=== PATIENT | female | born 1960 | race Caucasian/White ===

== ENCOUNTER → 2016-05-09 06:57 | Day surgery (SDC) | payer OTHER ==
--- NOTE | 2016-04-20 10:26 | HP ---
ADMITTING HISTORY AND PHYSICAL: DATE OF ADMISSION: 05/09/16 ADMITTING DIAGNOSIS: Left renal calculus. PLANNED PROCEDURE: Left stent insertion and shock wave lithotripsy of left renal calculus. SURGEON: Dr. Hale. ADMITTING HISTORY OF PRESENT ILLNESS: Michelle Fairchild is a 55-year-old lady who had presented with large bilateral renal calculi. She had undergone multiple procedures earlier for the right renal calculi with fragmentation, but she still has a lot of residual fragments. On the left side, she has a fairly large calculus, which has not been treated and she is now being brought in for left stent insertion and lithotripsy. PAST MEDICAL HISTORY: Significant for: 1. Bilateral renal calculi. 2. Morbid obesity. 3. Diabetes mellitus. 4. Hypertension. 5. High cholesterol. MEDICATIONS: On admission: 1. Metformin 500 mg a day. 2. Lisinopril 5 mg a day. 3. Bydureon 2 mg daily. 4. Simvastatin 5 mg a day. 5. Hydrochlorothiazide 12.5 mg a day. 6. Aspirin, which she is going to hold a week prior to surgery. ALLERGIES: No known drug allergies. SOCIAL HISTORY: Smoking history: She is a long-time smoker, approximately 35- to 40-pack years. PHYSICAL EXAMINATION GENERAL: Reveals a pleasant middle-aged overweight lady. VITAL SIGNS: Blood pressure is 136/88, pulse 86 per minute, oxygen saturation 97% on room air, temperature 97. LUNGS: Clear bilaterally. CARDIOVASCULAR: Regular rate and rhythm. S1, S2. ABDOMEN: Soft, obese with mild bilateral flank tenderness. IMPRESSION: A 55-year-old lady with a left renal calculus. PLAN: Planned procedure is left stent insertion and shock wave lithotripsy of left renal calculus. I have discussed the procedure in detail with Ms. Fairchild including possible risks of bleeding, infection, incomplete fragmentation, and she understands and wishes to proceed as planned. CC: Dr. Britt Bautista; Dr. Hale* [id number]/[facility] #: [id number] [facility]
[~2016-05-09 06:57] MED LIST: Buffered Lidocaine 1% SYR 3ML* 3 ML/SYR SYRINGE INTRADERM ONE; Dexamethasone IV* 4 MG/ML 1 ML (4 MG) ONE; Famotidine IV* 10 MG/ML 2 ML (20 mg) IV ONE; Famotidine IV* 10 MG/ML 2 ML (20 mg) ONE; HYDROmorphone INJ* 1 MG/ML CARPUJECT SYRINGE IV PRN; Iohexol 180 (CONTRAST) 10 ML SDV IV ONE; KETAMINE HCL* 50 MG/ML 10 ML VIAL ONE; Ketorolac INJ* 30 MG/ML 1 ML VIAL ONE; Labetalol IV* 5 MG/ML 20 ML VIAL ONE; Lidocaine 2% PF * 5 ML VIAL ONE; Metoclopramide TAB* 10 MG ONE; Metoclopramide TAB* 10 MG PO ONE; Midazolam* 1 MG/ML 5 ML VIAL (5 MG) ONE; Ondansetron INJ* 2 MG/ML VIAL IV PRN; Ondansetron INJ* 2 MG/ML VIAL ONE; Propofol* 10 MG/ML 20 ML BTL IV PUSH ONE; cefTRIAXone(*) 2 GM ADDV.VIAL IVPB ONE; fentaNYL* 50 MCG/ML 2 ML VIAL (100 MCG VIAL) IV PRN; fentaNYL* 50 MCG/ML 2 ML VIAL (100 MCG VIAL) ONE; oxyCODONE/Acetamin 5/325 MG* TAB PO PRN
--- NOTE | 2016-05-09 08:15 | RAD ---
INDICATION: Bilateral nephrolithiasis COMPARISON: March 14, 2016 TECHNIQUE: A single view of the abdomen is submitted. FINDINGS: Bones: There are no acute bony findings. Soft tissues: The soft tissues appear normal. The psoas margins are sharp. Bowel gas pattern: Normal Calcifications: There is bilateral nephrolithiasis. The right calculus is fragmented. The appearance is unchanged Other: None IMPRESSION: BILATERAL NEPHROLITHIASIS
[2016-05-09 12:18] VITALS: BP 129/76
--- NOTE | 2016-05-09 15:11 | RAD ---
INDICATION: Postoperative COMPARISON: May 09, 2016 TECHNIQUE: A single view of the abdomen is taken at 1341 hours submitted. FINDINGS: Bones: There are no acute bony findings. Soft tissues: The soft tissues appear normal. The psoas margins are sharp. Bowel gas pattern: Normal Calcifications: There is interval fragmentation of the left renal calculus and there is interval placement of a left ureteral stent. Other: None IMPRESSION: INTERVAL LEFT-SIDED LITHOTRIPSY WITH CALCULUS FRAGMENTATION. STENT PLACEMENT.
--- NOTE | 2016-05-10 02:15 | OP ---
DATE OF OPERATION: 05/09/16 - [facility] DATE OF : 58 SURGEON: Dr. Hale. ANESTHESIOLOGIST: Dr. Dillon. ANESTHESIA: General. PRE-OP DIAGNOSES: 1. Left renal calculus. 2. Left hydronephrosis. POST-OP DIAGNOSES: 1. Left renal calculus. 2. Left hydronephrosis. OPERATIVE PROCEDURE: 1. Cystoscopy, left retrograde pyelogram, left stent insertion. 2. Shockwave lithotripsy of left renal calculus. COMPLICATIONS: None. OPERATIVE FINDINGS: Large calculus, left ureteropelvic junction with left hydronephrosis. STENT USED: 8.5-Canadian 28-cm silicone stent, left ureter. POSTOPERATIVE CONDITION: Stable. INDICATIONS: Michelle Fairchild is a 55-year-old lady with a history of recurrent bilateral renal calculi. She had previously undergone treatment of right-sided calculi and is now being brought in for treatment of a large left ureteropelvic junction calculus. I have discussed the procedure in detail including possible risks of bleeding, infection, incomplete fragmentation, and possible injury to the kidney with her and she wishes to proceed as planned. DESCRIPTION OF PROCEDURE: After induction of general anesthesia, the patient was placed on the lithotripsy table in dorsal lithotomy position. Sequential compression devices were in place and functioning. Initial cystoscopy revealed a normal-appearing bladder. Left retrograde pyelogram revealed a large calculus at the left ureteropelvic junction with left hydronephrosis. An 8.5- Canadian 28-cm silicone stent was placed under fluoroscopic monitoring with good proximal and distal positioning obtained. Next, the patient was placed on the lithotripsy table in supine position and the calculus was identified using fluoroscopy. Shockwave lithotripsy was commenced at a rate of 90 shocks per minute. After the initial 300 shocks, lithotripsy was paused in an effort to minimize any potential trauma to the kidney and then resumed a few minutes later. Periodic imaging revealed good localization and fragmentation and a total of 2400 shocks were administered. I have explained to the patient that because of the large size of the calculus, she may require multiple procedures to render her stone free and the plan is to obtain an x-ray after this to see what additional procedures if any are needed. CC: Dr. Britt Bautista; Dr. Rob Hale* [id number]/[facility] #: [id number] [place]
== END | disposition home or self-care (01) ==
LOC: OR 06:57
PROVIDERS: ATTEND Urology
DX: N13.2 Hydronephrosis with renal and ureteral calculous obstruction (principal); Z79.82 Long term (current) use of aspirin; E11.9 Type 2 diabetes mellitus without complications; Z79.84 Long term (current) use of oral hypoglycemic drugs; I10 Essential (primary) hypertension; F17.210 Nicotine dependence, cigarettes, uncomplicated; E66.01 Morbid (severe) obesity due to excess calories
CPT/HCPCS: 74000; A9270-GY; C1876; J0696; J1100; J1885; J2250; J2405; J2704; J3010

== ENCOUNTER 2016-07-22 14:20 | Day surgery (SDC) | payer OTHER ==
--- NOTE | 2016-07-21 22:06 | HP ---
STAT ADMITTING HISTORY AND PHYSICAL: DATE OF ADMISSION: 07/22/16 AGE: 55 years, female. ADMITTING DIAGNOSES: 1. Left hydronephrosis. 2. Left ureteral calculus. 3. Bilateral renal calculi. PLANNED PROCEDURES: Left retrograde, left ureteroscopy, possible laser and stent insertion, and possible right stent insertion. SURGEON: Dr. Hale. HISTORY OF PRESENT ILLNESS: Michelle Fairchild is a 55-year-old lady with a history of recurrent multiple large bilateral renal and ureteral calculi. She had undergone lithotripsy followed by stent removal a couple of months ago. She was recently evaluated and an ultrasound was noted to have moderate left hydronephrosis. On x- ray, she was noted to have what appears to be a 7 to 8 mm calculus in the proximal left ureter. A followup x-ray was done, which revealed a persistent calculus in the same location unchanged and she is complaining of increasing left flank pain. In addition, she has bilateral renal calculi and also a possible calculus in the area of the right renal pelvis. PAST MEDICAL HISTORY: Significant for: 1. Morbid obesity. 2. Diabetes mellitus. 3. Renal calculi. 4. High cholesterol. 5. Hypertension. MEDICATIONS: 1. Bydureon 2 mg daily. 2. Lisinopril 5 mg daily. 3. Hydrochlorothiazide 12.5 mg daily. 4. Simvastatin 5 mg a day. 5. Metformin 500 mg daily. ALLERGIES: No known drug allergies. PHYSICAL EXAMINATION GENERAL: An obese, middle-aged lady. VITAL SIGNS: Blood pressure is 142/88, pulse 94 per minute, oxygen saturation 96% on room air, temperature 97.3. LUNGS: Clear bilaterally. CARDIOVASCULAR EXAM: Regular rate and rhythm. S1, S2. ABDOMEN: Soft, obese with bilateral flank tenderness, left more than right. IMPRESSION: A 55-year-old diabetic with multiple large bilateral calculi and an obstructing calculus in the left proximal ureter. Plan is left retrograde ureteroscopy, possible laser and stent insertion, possible right stent insertion (possibly to be followed in the near future by shockwave lithotripsy). CC: Dr. Britt Bautista; Dr. Hakeem Connor; Dr. Hale* [id number]/[facility] #: [id number] [facility]
[~2016-07-22 14:20] MED LIST changes: -Buffered Lidocaine 1% SYR 3ML* 3 ML/SYR SYRINGE INTRADERM ONE; -Dexamethasone IV* 4 MG/ML 1 ML (4 MG) ONE; -HYDROmorphone INJ* 1 MG/ML CARPUJECT SYRINGE IV PRN; -Iohexol 180 (CONTRAST) 10 ML SDV IV ONE; -KETAMINE HCL* 50 MG/ML 10 ML VIAL ONE; -Ketorolac INJ* 30 MG/ML 1 ML VIAL ONE; -Labetalol IV* 5 MG/ML 20 ML VIAL ONE; -Lidocaine 2% PF * 5 ML VIAL ONE; -Midazolam* 1 MG/ML 5 ML VIAL (5 MG) ONE; -Ondansetron INJ* 2 MG/ML VIAL IV PRN; -Ondansetron INJ* 2 MG/ML VIAL ONE; -Propofol* 10 MG/ML 20 ML BTL IV PUSH ONE; -fentaNYL* 50 MCG/ML 2 ML VIAL (100 MCG VIAL) IV PRN; -fentaNYL* 50 MCG/ML 2 ML VIAL (100 MCG VIAL) ONE; -oxyCODONE/Acetamin 5/325 MG* TAB PO PRN
[2016-07-22] MEDS ORDERED: Iohexol 180 (CONTRAST) 10 ML SDV IV ONE (14:48)
[2016-07-22] MEDS ORDERED: Lidocaine 2% PF * 5 ML VIAL ONE (15:03)
[2016-07-22] MEDS ORDERED: KETAMINE HCL* 50 MG/ML 10 ML VIAL ONE (15:03)
[2016-07-22] MEDS ORDERED: Ondansetron INJ* 2 MG/ML VIAL ONE (15:03)
[2016-07-22] MEDS ORDERED: Midazolam* 1 MG/ML 5 ML VIAL (5 MG) ONE (15:03)
[2016-07-22] MEDS ORDERED: Ketorolac INJ* 30 MG/ML 1 ML VIAL ONE (15:03)
[2016-07-22] MEDS ORDERED: Dexamethasone IV* 4 MG/ML 1 ML (4 MG) ONE (15:03)
[2016-07-22] MEDS ORDERED: fentaNYL* 50 MCG/ML 2 ML VIAL (100 MCG VIAL) ONE ×2 (15:03→16:38)
[2016-07-22] MEDS ORDERED: Propofol* 10 MG/ML 20 ML BTL IV PUSH ONE (15:03)
[2016-07-22] MEDS ORDERED: Insulin REGULAR(*) 1 UNITS UNIT ONE (15:11)
[2016-07-22] MEDS ORDERED: Phenylephrine IV* 40 MCG/ML 10 ML SYRINGE ONE (16:19)
[2016-07-22] MEDS ORDERED: fentaNYL* 50 MCG/ML 2 ML VIAL (100 MCG VIAL) IV PRN (16:58)
[2016-07-22] MEDS ORDERED: Ondansetron INJ* 2 MG/ML VIAL IV PRN (16:58)
[2016-07-22] MEDS ORDERED: oxyCODONE/Acetamin 5/325 MG* TAB PO PRN (16:58)
[2016-07-22] MEDS ORDERED: Labetalol IV* 5 MG/ML 20 ML VIAL ONE (17:05)
[2016-07-22 18:51] VITALS: BP 142/75
--- NOTE | 2016-07-22 20:08 | RAD ---
CPT II Codes: 6045F INDICATION: Bilateral renal calculi TECHNIQUE: Intraoperative fluoroscopy was provided during retrograde nephroureterostomy grams with stent placement. FINDINGS: 8 spot films depict bilateral retrograde nephroureterostomy grams demonstrating mild bilateral hydronephrosis. Final images depict anatomically aligned bilateral ureteral stents.. Fluoroscopy time: 27 seconds IMPRESSION: As above.
--- NOTE | 2016-07-25 13:47 | OP ---
OPERATIVE SUMMARY: DATE OF OPERATION: 07/22/16 - [facility] DATE OF : 58 SURGEON: Dr. Hale. ANESTHESIOLOGIST: Dr. Dillon. ANESTHESIA: General. PRE-OP DIAGNOSES: 1. Left hydronephrosis. 2. Calculus, left proximal ureter. 3. Bilateral renal calculi. POST-OP DIAGNOSES: 1. Left hydronephrosis. 2. Calculus, left proximal ureter. 3. Bilateral renal calculi. OPERATIVE PROCEDURE: 1. Cystoscopy, left retrograde pyelogram, left ureteroscopy, laser lithotripsy of left ureteral calculus, and left stent insertion. 2. Right retrograde and right stent insertion. COMPLICATIONS: None. STENT USED: A 6-Botswanan 28-cm silicone stent, left ureter and 7-Botswanan 28-cm silicone stent, right ureter. INDICATIONS: Michelle Fairchild is a 55-year-old lady with a history of recurrent bilateral renal and ureteral calculi. POSTOPERATIVE CONDITION: Stable. DESCRIPTION OF PROCEDURE: After induction of general anesthesia, the patient was placed in dorsal lithotomy position. Sequential compression devices were in place and functioning. Initial cystoscopy revealed a normal-appearing bladder. A left retrograde pyelogram revealed left hydronephrosis. A fairly large obstructing calculus was noted on fluoroscopy in the vicinity of the proximal left ureter. Using a 6-Botswanan semi-rigid ureteroscope, this was advanced under direct vision into the proximal left ureter and the calculus was visualized, it was noted to be impacted with significant surrounding inflammatory response. Using a 550 micron holmium laser, this was partially fragmented. Because of the edema and inflammation around the calculus, I did not attempt to completely fragment the calculus to try and avoid any injury to the ureter and to reduce the risk of stricture. Once enough of the stone had been fragmented, a 6-Botswanan 28-cm silicone stent was introduced and positioned under fluoroscopy with good proximal and distal positioning obtained. Next, attention was directed to the right side. Here also to me, it looked like there was a calculus in the area of the right renal pelvis, on retrograde, with mild fullness of the collecting system. A 7-Botswanan 28-cm silicone stent was introduced in an effort to avoid any obstruction in the near future by this calculus, which was in the renal pelvis. The patient will need additional procedures in the form followup laser lithotripsy for the left ureteral calculus and shockwave lithotripsy probably for the bilateral renal calculi and this had been previously discussed with her. Patient tolerated the procedure satisfactorily and was transferred back to the recovery area in stable condition. CC: Dr. Britt Bautista; Dr. Rob Hale* [id number]/[facility] #: [id number] MTDD
== END 2016-07-22 19:09 | disposition home or self-care (01) ==
LOC: OR 14:20
PROVIDERS: ATTEND Urology
DX: N13.2 Hydronephrosis with renal and ureteral calculous obstruction (principal); E11.9 Type 2 diabetes mellitus without complications; Z79.84 Long term (current) use of oral hypoglycemic drugs; I10 Essential (primary) hypertension; E78.00 Pure hypercholesterolemia, unspecified; E66.01 Morbid (severe) obesity due to excess calories; F17.210 Nicotine dependence, cigarettes, uncomplicated
CPT/HCPCS: 74420; A9270-GY; C1876; J0696; J1100; J1580; J1885; J2250; J2405; J2704; J3010

== ENCOUNTER 2016-08-15 07:34 | Day surgery (SDC) | payer OTHER ==
--- NOTE | 2016-08-10 10:11 | HP ---
CC: Hakeem Connor MD; Britt Bautista MD * ADMITTING HISTORY AND PHYSICAL: DATE OF ADMISSION: 08/15/16 - [facility] AGE/SEX: 55 years, female. ADMITTING DIAGNOSES: 1. Bilateral renal calculi. 2. Left ureteral calculus. PLANNED PROCEDURE: 1. Shock wave lithotripsy of left ureteral calculus, possible left ureteroscopy and laser. 2. Shock wave lithotripsy of right renal calculi. SURGEON: Rob Hale MD HISTORY OF PRESENT ILLNESS: Michelle Fairchild is a 55-year-old lady with morbid obesity and bilateral large renal and ureteral calculi, who has required several procedures over the course of the last year. These have included shock wave lithotripsy and ureteroscopy with laser with the most recent one being on July 22 with left ureteroscopy, laser lithotripsy for a calculus in the left proximal ureter. She is now being brought in for repeat lithotripsy of the right renal calculi and either possible lithotripsy or ureteroscopy with laser of the left renal calculi depending on the preoperative x-ray assessment. PAST MEDICAL HISTORY: Significant for: 1. Diabetes mellitus. 2. Morbid obesity. 3. Large bilateral renal calculi. 4. Hypertension. 5. High cholesterol. MEDICATIONS ON ADMISSION: 1. Lisinopril 5 mg daily. 2. Hydrochlorothiazide 12.5 mg daily. 3. Bydureon 2 mg daily. 4. Simvastatin 5 mg daily. 5. Metformin 500 mg daily. ALLERGIES: No known drug allergies. REVIEW OF SYSTEMS: She denies any chest pain or shortness of breath. PHYSICAL EXAMINATION GENERAL: Reveals an overweight middle-aged lady. VITAL SIGNS: Blood pressure is 134/90, pulse 87 per minute, regular, oxygen saturation 96% on room air, temperature 97.4. CARDIOVASCULAR EXAM: Regular rate and rhythm. S1, S2. LUNGS: Lungs are clear bilaterally. ABDOMEN: Soft with mild bilateral flank tenderness, left greater than right. IMPRESSION: A 55-year-old lady with large bilateral renal and left ureteral calculi. PLANNED PROCEDURE: Shock wave lithotripsy of right renal calculi and either shock wave lithotripsy or left ureteroscopy and laser of left ureteral calculus depending on preoperative x-ray assessment. [id number]/[facility] #: [id number] [facility]
[~2016-08-15 07:34] MED LIST changes: +Buffered Lidocaine 0.9% SYRIN* 5 ML/SYR SYRINGE INTRADERM ONE; -Famotidine IV* 10 MG/ML 2 ML (20 mg) IV ONE; -Famotidine IV* 10 MG/ML 2 ML (20 mg) ONE; -Metoclopramide TAB* 10 MG ONE; -Metoclopramide TAB* 10 MG PO ONE; +Sodium Citrate/Citric Acid* 15 ML UDC PO ONE; -cefTRIAXone(*) 2 GM ADDV.VIAL IVPB ONE
[2016-08-15] MEDS ORDERED: Sodium Citrate/Citric Acid* 15 ML UDC ONE (07:40)
[2016-08-15] MEDS ORDERED: cefTRIAXone(*) 2 GM ADDV.VIAL IVPB ONE (07:40)
[2016-08-15] MEDS ORDERED: Iohexol 180 (CONTRAST) 10 ML SDV IV ONE (08:40)
--- NOTE | 2016-08-15 08:42 | RAD ---
Indication: Shock wave lithotripsy. Flat plate of the abdomen demonstrates bilateral ureteral stents in place. Multiple calcifications are noted in both kidneys. When compared to July 29, 2016 calcification burden appears similar. IMPRESSION: Bilateral ureteral stents are in place. Bilateral renal calcifications are noted.
[2016-08-15] MEDS ORDERED: Propofol* 10 MG/ML 20 ML BTL IV PUSH ONE (09:36)
[2016-08-15] MEDS ORDERED: Lidocaine 2% PF * 5 ML VIAL ONE (09:36)
[2016-08-15] MEDS ORDERED: fentaNYL* 50 MCG/ML 2 ML VIAL (100 MCG VIAL) ONE (09:40)
[2016-08-15] MEDS ORDERED: Phenylephrine IV* 40 MCG/ML 10 ML SYRINGE ONE (10:32)
[2016-08-15] MEDS ORDERED: fentaNYL* 50 MCG/ML 2 ML VIAL (100 MCG VIAL) IV PRN (10:44)
[2016-08-15] MEDS ORDERED: Ondansetron INJ* 2 MG/ML VIAL IV PRN (10:44)
[2016-08-15 12:16] VITALS: BP 153/82
--- NOTE | 2016-08-15 14:54 | RAD ---
INDICATION: Bilateral nephrolithiasis. Status post ESWL COMPARISON: August 15, 2016 TECHNIQUE: A single view of the abdomen is submitted. FINDINGS: Bones: There are no acute bony findings. Soft tissues: The soft tissues appear normal. The psoas margins are sharp. Bowel gas pattern: Normal Calcifications: There is bilateral nephrolithiasis. There is apparent increased fragmentation of these calculi bilaterally. Other: There are bilateral ureteral stents, unchanged IMPRESSION: BILATERAL NEPHROLITHIASIS WITH INTERVAL FRAGMENTATION OF THE CALCULI.
--- NOTE | 2016-08-15 23:24 | OP ---
CC: Britt Bautista MD * DATE OF OPERATION: 08/15/16 - [facility] DATE OF : 58 - AGE/SEX: 55 years/female. SURGEON: Rob Hale MD ANESTHESIOLOGIST: Dr. Kan. ANESTHESIA: General. PRE-OP DIAGNOSES: 1. Left ureteral calculus. 2. Multiple right renal calculi. POST-OP DIAGNOSES: 1. Left ureter calculus. 2. Multiple right renal calculi. OPERATIVE PROCEDURE: 1. Shockwave lithotripsy of left ureteral calculus. 2. Shockwave lithotripsy of multiple renal calculi. COMPLICATIONS: None. POSTOPERATIVE CONDITION: Stable. INDICATIONS: Michelle Fairchild is a 55-year-old lady who had presented with multiple bilateral renal and ureteral calculi. She has undergone several procedures and still has multiple stone fragments in the right kidney and left ureter. She has bilateral stents in place. DESCRIPTION OF PROCEDURE: After induction of general anesthesia, the patient was placed on the lithotripsy table in supine position. Attention was first directed to the left side. The dominant calculus was in the proximal left ureter adjacent to the stent. This was localized using fluoroscopy and shockwave lithotripsy was commenced at a rate of 60 shocks per minute. Periodic imaging revealed good localization and fragmentation and a total of 1800 shocks were delivered. Next, attention was directed to the right side, there was a cluster of stones in the right renal pelvis and these were targeted with shockwaves at a rate of 60 shocks per minute. After the initial 300 shocks, there was a pause in lithotripsy for several minutes in an effort to minimize any potential trauma to the kidney. Lithotripsy was then resumed, and a total of 2200 shocks were administered. The patient tolerated the procedure satisfactorily and was transferred back to the recovery area in stable condition. [id number]/[facility] #: [id number] MTDD
== END 2016-08-15 13:13 | disposition home or self-care (01) ==
LOC: OR 07:34
PROVIDERS: ATTEND Urology
DX: N20.2 Calculus of kidney with calculus of ureter (principal); E11.9 Type 2 diabetes mellitus without complications; I10 Essential (primary) hypertension; E78.00 Pure hypercholesterolemia, unspecified; E66.01 Morbid (severe) obesity due to excess calories
CPT/HCPCS: 74000; A9270-GY; J0696; J1580; J2704; J3010

== ENCOUNTER 2017-03-13 10:45 | Day surgery (SDC) | payer OTHER ==
--- NOTE | 2017-03-01 08:23 | HP ---
CC: Dr. Bautista; Dr. Hale ADMITTING HISTORY AND PHYSICAL: DATE OF ADMISSION: 03/13/17 ADMITTING DIAGNOSIS: Right renal calculi. PLANNED PROCEDURE: Right stent insertion and shockwave lithotripsy of right renal calculi. SURGEON: Rob Hale MD HISTORY OF PRESENT ILLNESS: Michelle Fairchild is a 56-year-old lady with history of recurrent bilateral renal calculi. She had previously undergone several procedures over the last year and a half and a r ecent followup ultrasound and x-ray revealed residual or recurrent calculi in the right kidney. She was given options of referral for percutaneous nephrolithotripsy or repeat shockwave lithotripsy or r epeat ureteroscopy with laser and is opting for and is now being brought in for repeat shockwave lith otripsy and right stent insertion. PAST MEDICAL HISTORY: 1. Morbid obesity. 2. Recurrent bilateral renal calculi. 3. Diabetes mellitus. 4. Hypertension. 5. High cholesterol. MEDICATIONS ON ADMISSION: 1. Hydrochlorothiazide 12.5 mg a day. 2. Simvastatin 5 mg a day. 3. Lisinopril 5 mg a day. 4. Bydureon 2 mg a day. 5. Metformin 500 mg daily. She also recently completed a course of Cipro for one week. ALLERGIES: No known drug allergies. PHYSICAL EXAMINATION GENERAL: Reveals a pleasant, overweight middle-aged lady. VITAL SIGNS: Blood pressure is 132/86, pulse 110 per minute and regular, temperature 97.0, oxygen sa turation 98% on room air. LUNGS: Clear bilaterally. CARDIOVASCULAR EXAM: Regular rate and rhythm. S1, S2. ABDOMEN: Soft, obese with right flank tenderness. IMPRESSION: A 56-year-old diabetic with history of recurrent renal calculi. Planned procedure is ri t stent insertion and shockwave lithotripsy of right renal calculi. I have discussed the procedure in detail including possible risks of bleeding, infection, incomplete fragmentation, possible injury to the kidney, and obstructing fragments. She understands and wishes to proceed as planned. [id number]/[facility] #: [id number]
[~2017-03-13 10:45] MED LIST changes: +Famotidine IV* 10 MG/ML 2 ML (20 mg) IV ONE; -Sodium Citrate/Citric Acid* 15 ML UDC PO ONE
[2017-03-13] MEDS ORDERED: Midazolam* 1 MG/ML 2 ML VIAL (2 MG) ONE (11:19)
[2017-03-13] MEDS ORDERED: fentaNYL* 50 MCG/ML 2 ML VIAL (100 MCG VIAL) ONE (11:19)
[2017-03-13] MEDS ORDERED: Buffered Lidocaine 0.9% SYRIN* 5 ML/SYR SYRINGE ONE (11:25)
[2017-03-13] MEDS ORDERED: Famotidine IV* 10 MG/ML 2 ML (20 mg) ONE (11:25)
[2017-03-13] MEDS ORDERED: cefTRIAXone(*) 1 GM ADVAN/BAG ONE (11:26)
[2017-03-13] MEDS ORDERED: Insulin REGULAR(*) 1 UNITS UNIT ONE (11:43)
[2017-03-13] MEDS ORDERED: Iohexol 180 (CONTRAST) 10 ML SDV IV ONE (11:55)
[2017-03-13] MEDS ORDERED: Insulin REGULAR(*) 1 UNITS UNIT SUBCUT ONE (11:55)
[2017-03-13] MEDS ORDERED: Naloxone* 0.4 MG/ML 1 ML VIAL IV PRN (11:56)
[2017-03-13] MEDS ORDERED: Acetaminophen TAB* 325 MG PO PRN (11:57)
[2017-03-13] MEDS ORDERED: oxyCODONE TAB* 5 MG TAB PO PRN (11:57)
[2017-03-13] MEDS ORDERED: Dexamethasone IV* 4 MG/ML 1 ML (4 MG) ONE (12:22)
[2017-03-13] MEDS ORDERED: Ketorolac INJ* 30 MG/ML 1 ML VIAL ONE (12:22)
[2017-03-13] MEDS ORDERED: Propofol* 10 MG/ML 20 ML BTL IV PUSH ONE (12:22)
[2017-03-13] MEDS ORDERED: Ondansetron INJ* 2 MG/ML VIAL ONE (12:22)
[2017-03-13] MEDS ORDERED: DiMENhydriNATE IV* 50 MG/ML VIAL ONE (12:22)
[2017-03-13] MEDS ORDERED: Gentamicin ADULT (*) 40 MG/ML VIAL ONE (12:46)
--- NOTE | 2017-03-13 12:56 | RAD ---
HISTORY: Shock wave lithotripsy COMPARISONS: February 10, 2017 VIEWS: Frontal views of the abdomen. FINDINGS: BOWEL: There is a nonspecific bowel gas pattern, with nondilated small bowel gas noted. CALCULI: Again noted are multiple calculi overlying the lower pole of the right renal parenchymal shadow BONES AND SOFT TISSUES: Degenerative changes noted of the spine. OTHER FINDINGS: The lung bases are clear. There is no subphrenic gas. IMPRESSION: STABLE RIGHT NEPHROLITHIASIS
[2017-03-13 14:43] VITALS: BP 148/75
--- NOTE | 2017-03-14 11:43 | OP ---
DATE OF OPERATION: 03/13/17 - [facility] DATE OF : 58 SURGEON: Rob Hale MD ANESTHESIOLOGIST: Dr. Kenny. ANESTHESIA: General. PRE-OP DIAGNOSIS: Multiple right renal calculi. POST-OP DIAGNOSIS: Multiple right renal calculi. OPERATIVE PROCEDURE: 1. Cystoscopy, right retrograde pyelogram, right ureteral stent insertion. 2. Shockwave lithotripsy of right renal calculi. COMPLICATIONS: None. POSTOPERATIVE CONDITION: Stable. STENT USED: 7-Wolof stent right ureter. INDICATIONS: Michelle Fairchild is a 56-year-old lady with recurrent bilateral renal calculi. She was recently evaluated and noted to have multiple calculi in the right kidney and has now been brought in for treatment for the same. DESCRIPTION OF PROCEDURE: After induction of general anesthesia, the patient was placed in dorsal lithotomy position. Sequential compression devices were in place and functioning. Initial cystoscopy revealed urethral stenosis with a retracted meatus. The bladder was examined, but some cloudy residual urine noted. Right retrograded pyelogram was performed, which was unremarkable except for the filling defects consistent with the known location of the calculi. A 7-Wolof stent was introduced and positioned under fluoroscopy with good proximal and distal positioning obtained. Next, the patient was placed on the lithotripsy table in supine position. There were two clusters of calculi in mid to lower pole area of the right kidney , which were targeted under fluoroscopic monitoring with shockwave lithotripsy at a rate of 90 shocks per minute. After the initial 300 shocks, there was a pause in lithotripsy for several minutes in an effort to minimize any potential trauma to the kidney. A total of 2400 shocks were distributed between the 2 clusters of calculi and the patient tolerated the procedure satisfactorily and was transferred back to the recovery area in stable condition. [id number]/[facility] #: [id number] [facility]
== END 2017-03-13 15:05 | disposition home or self-care (01) ==
LOC: OR 10:45
PROVIDERS: ATTEND Urology
DX: N20.0 Calculus of kidney (principal); E66.01 Morbid (severe) obesity due to excess calories; E11.9 Type 2 diabetes mellitus without complications; I10 Essential (primary) hypertension; E78.00 Pure hypercholesterolemia, unspecified
CPT/HCPCS: 74018; C1876; J0696; J1100; J1240; J1580; J1885; J2250; J2405; J2704; J3010

== ENCOUNTER → 2018-06-22 06:56 | Day surgery (SDC) | payer OTHER ==
--- NOTE | 2018-06-20 07:35 | HP ---
CC: Dr. Britt Bautista * ADMITTING HISTORY AND PHYSICAL: DATE OF ADMISSION: 06/22/18 ADMITTING DIAGNOSES: 1. Right hydronephrosis. 2. Calculus, right ureter. PLANNED PROCEDURE: Right ureteroscopy, possible laser, and stent insertion. SURGEON: Dr. Hale. HISTORY OF PRESENT ILLNESS: Michelle Fairchild is a 57-year-old diabetic with a history of recurrent renal calculi. She had been recently evaluated and noted to have right hydronephrosis. A CT scan was obtained, which revealed moderate- to-severe right hydronephrosis with an 8-mm calculus in the distal right ureter. PAST MEDICAL HISTORY: Significant for: 1. Recurrent renal calculi. 2. Diabetes mellitus, type 2. 3. Hypertension. 4. High cholesterol. 5. Peripheral neuropathy. MEDICATIONS: On admission: 1. Metformin 1000 mg twice a day. 2. Lisinopril 5 mg a day. 3. Simvastatin 5 mg a day. 4. Aspirin 81 mg a day. 5. Hydrochlorothiazide 12.5 mg a day. 6. Jardiance 10 mg a day. 7. Gabapentin 100 mg 3 times a day. 8. Glipizide 1 tablet daily. ALLERGIES: No known drug allergies. FAMILY HISTORY: Negative for stones. SOCIAL HISTORY: Smoking history: She is a chronic smoker with a [id number] smoking history. REVIEW OF SYSTEMS: She denies any chest pain or shortness of breath. PHYSICAL EXAMINATION GENERAL: Reveals a pleasant, overweight, middle-aged lady. VITAL SIGNS: Blood pressure is 134/70, pulse 90 per minute, temperature 97.5, oxygen saturation 94% on room air. LUNGS: Clear bilaterally. CARDIOVASCULAR: Regular rate and rhythm. S1, S2. ABDOMEN: Soft with right flank tenderness. IMPRESSION: A 57-year-old diabetic with 8-mm calculus in the right distal ureter with [id number] right hydronephrosis. PLAN: I discussed the procedure in detail with Ms. Fairchild including possible risks of bleeding, infection, incomplete fragmentation, possible injury to the ureter. Plan is right ureteroscopy, possible laser, and stent insertion. [id number]/[facility] #: [id number] MTDD
[~2018-06-22 06:56] MED LIST changes: -Buffered Lidocaine 0.9% SYRIN* 5 ML/SYR SYRINGE INTRADERM ONE; +Buffered Lidocaine 1% SYRIN* 1 ML/SYRINGE INTRADERM ONE; +Dexamethasone IV* 4 MG/ML 1 ML (4 MG) ONE; +Famotidine IV* 10 MG/ML 2 ML (20 mg) ONE; +Gentamicin ADULT (*) 180 MG in NS 0.9% 100 ML* 100 ML IVPB ONE; +Iohexol 180 (CONTRAST) 10 ML SDV IV ONE; +Lactated Ringers 1000 ML Bag* 1,000 ML IV SCH; +Levalbuterol 0.63MG/3ML NEB* UNIT OF USE INH PRN; +Lidocaine 2% PF * 5 ML VIAL ONE; +Midazolam* 1 MG/ML 5 ML VIAL (5 MG) ONE; +Naloxone* 0.4 MG/ML 1 ML VIAL IV PRN; +Ondansetron INJ* 2 MG/ML VIAL IV PRN; +Ondansetron INJ* 2 MG/ML VIAL ONE; +Propofol* 10 MG/ML 20 ML BTL ONE; +cefTRIAXone(*) 2 GM ADDV.VIAL IVPB ONE; +fentaNYL* 50 MCG/ML 2 ML VIAL (100 MCG VIAL) IV PRN; +fentaNYL* 50 MCG/ML 2 ML VIAL (100 MCG VIAL) ONE
[2018-06-22 10:39] VITALS: BP 116/66
--- NOTE | 2018-06-22 13:28 | OP ---
CC: Dr. Bautista; Dr. Hale OPERATIVE REPORT: DATE OF OPERATION: 06/22/18 DATE OF : 58 SURGEON: oRb Hale MD ANESTHESIOLOGIST: Dr. Dillon. ANESTHESIA: General. PRE-OP DIAGNOSES: 1. Right hydronephrosis. 2. Calculus, right ureter. 3. Possible urinary tract infection. POST-OP DIAGNOSES: 1. Right hydronephrosis. 2. Calculus, right ureter. 3. Possible urinary tract infection. OPERATIVE PROCEDURE: Cystoscopy, right retrograde pyelogram, right ureteroscopy, and right pyeloscop y, laser lithotripsy of calculus, right ureter and removal of calculus fragments and right stent inse rtion. COMPLICATIONS: None. STENT USED: A 8.5 Belarusian 26 cm black silicone stent, right ureter. INDICATIONS: Michelle Fairchild is a 57-year-old lady with a history of recurrent renal and ureteral calc alejo. She was recently noted to have approximately 8 mm calculus in the right distal ureter with mode rate to severe right hydronephrosis. DESCRIPTION OF PROCEDURE: After induction of general anesthesia, the patient was placed in dorsal li thotomy position. Sequential compression devices were in place and functioning. Initial evaluation revealed some cloudy urine in the bladder which impaired visibility. The bladder was carefully irrig ated which allowed me to visualize the trigone. A guidewire was introduced into the right ureter. Re trograde pyelogram revealed right hydronephrosis and proximal hydroureter. Cloudy urine was noted to be draining from the right kidney and was sent for culture and sensitivity. A 6-Belarusian semi-rigid ur eteroscope was introduced and advanced under direct vision in the distal ureter about 3 to 4 cm above the ureterovesical junction. There was a fairly large irregular calculus which was impacted with hinton rrounding edema and inflammation. The calculus was carefully disengaged. The ureter above the calcu lesli was significantly dilated. The ureteroscope was advanced all the way up into the renal pelvis an d no additional calculi were noted. The ureteroscope was then withdrawn to the level of the calculus and using a 550-micron Holmium laser, successful laser lithotripsy was carried out. All of the size able fragments were removed. At the end of the procedure, an 8.5 Belarusian 26 cm black silicone stent w as positioned under fluoroscopy with good proximal and distal positioning obtained. The bladder was emptied. The patient tolerated the procedure satisfactorily and was transferred back to [facility] are a in stable condition. [id number]/[facility] #: [id number]
== END | disposition home or self-care (01) ==
LOC: OR 06:56
PROVIDERS: ATTEND Urology
DX: N13.2 Hydronephrosis with renal and ureteral calculous obstruction (principal); E11.42 Type 2 diabetes mellitus with diabetic polyneuropathy; Z79.84 Long term (current) use of oral hypoglycemic drugs; Z87.442 Personal history of urinary calculi; I10 Essential (primary) hypertension; E78.00 Pure hypercholesterolemia, unspecified; Z72.0 Tobacco use
CPT/HCPCS: 74420; 82365; 87086; 87106; 88300; C1876; J0696; J1100; J1580; J2250; J2405; J2704; J3010

== ENCOUNTER → 2018-11-02 08:06 | Day surgery (SDC) | payer OTHER ==
--- NOTE | 2018-11-01 12:28 | HP ---
CC: Dr. Bautista; Dr. Rob Hale* ADMITTING HISTORY AND PHYSICAL: DATE OF ADMISSION: 11/02/18 ADMITTING DIAGNOSES: 1. Right hydronephrosis. 2. Possible stricture, right ureter. PLANNED PROCEDURE: Right retrograde pyelogram, right ureteroscopy, possible balloon dilatation and stent insertion. SURGEON: Dr. Hale. HISTORY OF PRESENT ILLNESS: Michelle Fairchild is a 57-year-old lady with a history of recurrent bilateral renal and ureteral calculi. She has undergone multiple procedures over the years including ureteroscopy, laser lithotripsy and shockwave lithotripsy and recently was noted to have progressively worsening right hydronephrosis without any definite calculus noted in the ureter. My concern is this may be secondary to a stricture and she is now being brought in for further evaluation and management. PAST MEDICAL HISTORY: Significant for: 1. Diabetes mellitus. 2. Recurrent bilateral renal and ureteral calculi. 3. Hypertension. 4. High cholesterol. 5. Chronic smoking history. MEDICATIONS ON ADMISSION: 1. Metformin 1000 mg twice a day. 2. Lisinopril 5 mg daily. 3. Simvastatin 5 mg daily. 4. Hydrochlorothiazide 12.5 mg daily. 5. Fish oil 1200 mg twice a day. 6. Vitamin D3 1000 International Units daily. 7. Aspirin 81 mg daily. 8. Gabapentin 100 mg 3 times a day. 9. Jardiance 25 mg daily. FAMILY HISTORY: Negative for stones. SOCIAL HISTORY: She is a chronic smoker with a 45-pack year smoking history. REVIEW OF SYSTEMS: She denies any chest pain or shortness of breath. PHYSICAL EXAMINATION GENERAL: Reveals a pleasant, overweight middle-aged lady. VITAL SIGNS: Blood pressure is 136/84, pulse 96 per minute and regular, oxygen saturation 96% on room air, temperature 96.1. LUNGS: Clear bilaterally. CARDIOVASCULAR: Regular rate and rhythm. S1, S2. ABDOMEN: Soft with mild bilateral flank tenderness. SKIN: She has some abrasions on the left knee and left leg after recent fall, but no evidence of cellulitis. IMPRESSION: A 57-year-old lady with a history of multiple procedures for renal and ureteral calculi, who now has progressively worsening right hydronephrosis possibly secondary to a stricture in the right ureter. PLAN: Right retrograde, ureteroscopy, possible balloon dilatation and stent insertion. [id number]/[facility] #: [id number] [place]
[~2018-11-02 08:06] MED LIST changes: -Dexamethasone IV* 4 MG/ML 1 ML (4 MG) ONE; -Famotidine IV* 10 MG/ML 2 ML (20 mg) IV ONE; -Famotidine IV* 10 MG/ML 2 ML (20 mg) ONE; -Gentamicin ADULT (*) 180 MG in NS 0.9% 100 ML* 100 ML IVPB ONE; +Gentamicin ADULT (*) 40 MG/ML VIAL (2 ML VIAL = 80 MG) ONE; +HYDROcodone/ACETAMIN 5-325 MG* 1 TAB PO PRN; +HYDROmorphone INJ1* 1 MG/ML SYRINGE IV PRN; +Insulin REGULAR(*) 1 UNITS UNIT ONE; -Levalbuterol 0.63MG/3ML NEB* UNIT OF USE INH PRN; +Midazolam* 1 MG/ML 2 ML VIAL (2 MG) ONE; -Midazolam* 1 MG/ML 5 ML VIAL (5 MG) ONE; -Ondansetron INJ* 2 MG/ML VIAL IV PRN; -fentaNYL* 50 MCG/ML 2 ML VIAL (100 MCG VIAL) IV PRN
--- NOTE | 2018-11-02 12:09 | OP ---
CC: Dr. Bautista * DATE OF OPERATION: 11/02/18 - [facility] DATE OF : 58 SURGEON: Rob Hale MD ANESTHESIOLOGIST: Dr. Francois. ANESTHESIA: General. PRE-OP DIAGNOSES: 1. Right hydronephrosis. 2. Probable stricture, right ureter. POST-OP DIAGNOSES: 1. Right hydronephrosis and proximal hydroureter. 2. Stricture, right distal ureter. OPERATIVE PROCEDURE: Cystoscopy, right retrograde pyelogram, right ureteroscopy , right pyeloscopy, right ureteral balloon dilatation, and right stent insertion. COMPLICATIONS: None. STENT USED: 8.5 Qatari 28 cm silicone stent, right ureter. POSTOPERATIVE CONDITION: Stable. OPERATIVE FINDINGS: 1. Thick-walled bladder with no suspicious bladder lesions. 2. Severe right hydronephrosis and proximal right hydroureter with narrowing of the distal 2 to 3 cm of the ureter with no calculus identified and hydronephrosis likely secondary to stricture of the distal ureter. INDICATIONS: Michelle Fairchild is a 57-year-old lady with history of recurrent renal and ureteral calculi. She was recently noted to have persistent right hydronephrosis, which I suspect could be secondary to a stricture as an earlier CT scan had not revealed any calculi in the ureter. DESCRIPTION OF PROCEDURE: After induction of general anesthesia, the patient was placed in dorsal lithotomy position. Sequential compression devices were in place and functioning. Initial cystoscopy revealed a thick-walled, but otherwise unremarkable bladder. The right and left ureteral orifices were normal in position and configuration. A guide-wire was introduced into the right ureter. Retrograde pyelogram revealed severe right hydronephrosis and a markedly dilated proximal and mid right ureter down to the level of 2 to 3 cm above the bladder. A 6-Qatari semi-rigid uretero-scope was introduced and advanced under direct vision. The distal most part of the ureter was fairly narrow and the rest of the ureter was significantly dilated with no calculi noted. The ureteroscope was advanced all the way into the renal pelvis and pyeloscopy was performed. The renal pelvis also was markedly dilated with no calculi or lesions noted. The ureteroscope was carefully withdrawn under direct vision. Balloon dilatation of the distal 6 to 7 cm of the ureter was carried out successfully under fluoroscopic monitoring. Once this was done, an 8.5 Qatari 28 cm black silicone stent was introduced and positioned under fluoroscopy with good proximal and distal positioning obtained. A Pruitt catheter was placed for temporary bladder drainage. The patient tolerated the procedure satisfactorily and was transferred back to the recovery area in stable condition. [id number]/[facility] #: [id number] [place]
[2018-11-02 12:37] VITALS: BP 124/76
== END | disposition home or self-care (01) ==
LOC: OR 08:06
PROVIDERS: ATTEND Urology
DX: N13.1 Hydronephrosis with ureteral stricture, not elsewhere classified (principal); E11.9 Type 2 diabetes mellitus without complications; Z79.84 Long term (current) use of oral hypoglycemic drugs; I10 Essential (primary) hypertension; E78.00 Pure hypercholesterolemia, unspecified; Z87.442 Personal history of urinary calculi; F17.210 Nicotine dependence, cigarettes, uncomplicated; E66.01 Morbid (severe) obesity due to excess calories; E78.5 Hyperlipidemia, unspecified; K58.9 Irritable bowel syndrome, unspecified; G62.9 Polyneuropathy, unspecified
CPT/HCPCS: 74420; C1876; J0696; J1580; J2250; J2405; J2704; J3010

== ENCOUNTER 2023-03-18 20:26 | Inpatient (IN) ==
[2023-03-18] MEDS ORDERED: oxyCODONE/Acetamin 5/325 mg TAB PO ONE (21:28)
[2023-03-19 00:13] LABS: Albumin 3.7 g/dL (3.2-5.2); Albumin/Globulin Ratio 1.2 (1-3); Creatinine, Serum 1.02 mg/dL (0.51-0.95); Globulin 3.2 g/dL (2-4); Potassium 3.6 mmol/L (3.5-5.0); Total Bilirubin 0.3 mg/dL (0.2-1.0); Total Protein 6.9 g/dL (6.4-8.9); eGFR CKD-EPI 61.8 (>60)
[2023-03-19 00:14] LABS: ABS Basophils 0.1 10^3/uL (0.0-0.1); ABS Lymphocytes 1.4 10^3/uL (1.0-4.8); ABS Monocytes 0.6 10^3/uL (0.0-0.9); ABS Neutrophils 7.8 10^3/uL (1.5-7.6); Eosinophil % 0.3 %; Hematocrit 35.2 % (35-45); Hemoglobin 11.5 g/dL (11.5-14.3); Mean Corpuscular Hemoglobin 28.1 pg (27-33); Mean Corpuscular Hgb Conc 32.8 g/dL (31-36); Mean Corpuscular Volume 85.6 fL (80-97); Mean Platelet Volume 8.4 fL (7.5-11.2); Platelet Count 349 10^3/uL (150-450); Red Blood Count 4.11 10^6/uL (3.63-4.92); Red Cell Distribution Width 16.3 % (12-17)
[2023-03-19 00:58] LABS: Rapid COVID-19 Molecular Undetected (Undetected)
[2023-03-19 01:15] LABS: Influenza A Molecular Negative (Negative); Influenza B Molecular Negative (Negative)
[2023-03-19] MEDS ORDERED: Enoxaparin 40 MG/0.4 ML SYR SUBCUT SCH (06:00)
[2023-03-19 09:01] LABS: ABS Basophils 0.1 10^3/uL (0.0-0.1); ABS Eosinophils 0.1 10^3/uL (0.0-0.5); ABS Lymphocytes 1.7 10^3/uL (1.0-4.8); ABS Monocytes 0.7 10^3/uL (0.0-0.9); ABS Neutrophils 5.9 10^3/uL (1.5-7.6); ABS Nucleated RBC 0.01 10^3/ul; Eosinophil % 1.6 %; Hematocrit 34.2 % (35-45); Hemoglobin 11.4 g/dL (11.5-14.3); Lymphocyte % 19.6 %; Mean Corpuscular Hemoglobin 28.6 pg (27-33); Mean Corpuscular Hgb Conc 33.5 g/dL (31-36); Mean Corpuscular Volume 85.5 fL (80-97); Mean Platelet Volume 8.2 fL (7.5-11.2); Nucleated Red Blood Cells % 0.1 %/100WBC (0.0-0.8); Platelet Count 318 10^3/uL (150-450); Red Cell Distribution Width 16.5 % (12-17); White Blood Count 8.5 10^3/uL (3.8-11.8)
[2023-03-19 09:29] LABS: Calcium 8.7 mg/dL (8.6-10.3); Creatinine, Serum 0.9 mg/dL (0.51-0.95); Potassium 3.4 mmol/L (3.5-5.0); eGFR CKD-EPI 71.8 (>60)
[2023-03-19] MEDS ORDERED: KCL 20 MEQ/100 ML IVPREMIX 20 MEQ/100 ML BAG IV SCH (11:00)
[2023-03-19] MEDS ORDERED: Potassium Chlor 20 meq TAB.ER PO ONE (11:17)
[2023-03-20 06:25] LABS: Hematocrit 34.6 % (35-45); Hemoglobin 11.3 g/dL (11.5-14.3); Mean Corpuscular Hemoglobin 27.9 pg (27-33); Mean Corpuscular Hgb Conc 32.6 g/dL (31-36); Mean Corpuscular Volume 85.5 fL (80-97); Mean Platelet Volume 8.4 fL (7.5-11.2); Platelet Count 330 10^3/uL (150-450); Red Blood Count 4.04 10^6/uL (3.63-4.92); Red Cell Distribution Width 16.2 % (12-17)
[2023-03-20 06:41] LABS: Calcium 8.6 mg/dL (8.6-10.3); Creatinine, Serum 0.85 mg/dL (0.51-0.95); Magnesium 1.6 mg/dL (1.9-2.7); Potassium 3.6 mmol/L (3.5-5.0); eGFR CKD-EPI 76.9 (>60)
[2023-03-20] MEDS ORDERED: Magnesium Sulf 4 GM/100 ML IV 4,000 MG/100 ML BAG IVPB ONE (07:13)
[2023-03-20] MEDS ORDERED: Potassium Chlor 20 meq TAB.ER PO ONE ×2 (07:13→07:42)
[2023-03-20] MEDS ORDERED: Magnesium Sulfate 2 gm BAG 2 GM/50 ML BAG IVPB ONE (07:41)
[2023-03-20] MEDS ORDERED: fentaNYL 250 mcg/5 ml 50 MCG/ML 5 ml VIAL (250 MCG) ONE (15:44)
[2023-03-20] MEDS ORDERED: Midazolam 2 mg/2 ml VIAL 1 mg/ml 2 ml VIAL (2 mg) ONE (15:44)
[2023-03-20] MEDS ORDERED: Rocuronium 50 mg VIAL 10 mg/ml 5 ml VIAL (50 mg) ONE (15:44)
[2023-03-20] MEDS ORDERED: Enoxaparin 40 MG/0.4 ML SYR SUBCUT SCH (18:00)
[2023-03-21 06:33] LABS: Hematocrit 35.2 % (35-45); Hemoglobin 11.6 g/dL (11.5-14.3); Mean Corpuscular Hemoglobin 28.2 pg (27-33); Mean Corpuscular Volume 85.5 fL (80-97); Mean Platelet Volume 8.2 fL (7.5-11.2); Platelet Count 342 10^3/uL (150-450); Red Blood Count 4.12 10^6/uL (3.63-4.92); Red Cell Distribution Width 16.1 % (12-17); White Blood Count 9.4 10^3/uL (3.8-11.8)
[2023-03-21] MEDS ORDERED: Magnesium Sulfate 2 gm BAG 2 GM/50 ML BAG IVPB ONE (07:01)
[2023-03-21] MEDS ORDERED: Potassium Chlor 20 meq TAB.ER PO ONE (07:01)
[2023-03-21 07:12] LABS: Potassium 4.2 mmol/L (3.5-5.0)
[2023-03-21 07:13] LABS: Calcium 8.7 mg/dL (8.6-10.3); Creatinine, Serum 0.75 mg/dL (0.51-0.95); Magnesium 2.1 mg/dL (1.9-2.7); eGFR CKD-EPI 89.4 (>60)
[2023-03-21] MEDS ORDERED: ceFAZolin 2 GM PREMIX 2 GM/50 ML BAG ONE (11:41)
[2023-03-21] MEDS ORDERED: Midazolam 2 mg/2 ml VIAL 1 mg/ml 2 ml VIAL (2 mg) ONE (11:44)
[2023-03-21] MEDS ORDERED: fentaNYL 100 mcg/2 ml 50 MCG/ML VIAL ONE (11:44)
[2023-03-21] MEDS ORDERED: Rocuronium 50 mg VIAL 10 mg/ml 5 ml VIAL (50 mg) ONE (11:44)
[2023-03-21] MEDS ORDERED: HYDROmorphone 0.5 MG/0.5 ML SYRINGE ONE ×2 (12:45→13:13)
[2023-03-21] MEDS ORDERED: Lidocaine 1% w EPI 1:200,000 SDV 30 ML VIAL ONE (12:58)
[2023-03-21] MEDS ORDERED: Naloxone 0.4 mg VIAL 0.4 mg/ml 1 ml VIAL IV PRN (14:51)
[2023-03-21] MEDS ORDERED: fentaNYL 100 mcg/2 ml 50 MCG/ML VIAL IV PRN (14:51)
[2023-03-21] MEDS ORDERED: Morphine 2 MG/ML SYRINGE IV PRN (15:49)
[2023-03-21] MEDS ORDERED: Ondansetron 4 mg VIAL 2 MG/ML 2 ml VIAL IV PRN (15:49)
[2023-03-21] MEDS ORDERED: Lactulose 30 ml UDC PO PRN (15:49)
[2023-03-21] MEDS ORDERED: Ondansetron ODT 4 mg TAB 4 MG TAB PO PRN (15:49)
[2023-03-21] MEDS ORDERED: Magnesium Hydroxide LIQ 30 ML UDC PO PRN (15:49)
[2023-03-21] MEDS: Lactated Ringers 1000 ml BAG 1,000 ML IV SCH (16:23)
[2023-03-21] MEDS: Magnesium Hydroxide LIQ 30 ML UDC PO SCH (21:38)
[2023-03-21] MEDS: ceFAZolin 1 GM ADVAN 1 GM in NS 0.9% 50 ML 50 ML IVPB SCH (21:39)
[2023-03-22] MEDS: Lactated Ringers 1000 ml BAG 1,000 ML IV SCH (01:52)
[2023-03-22] MEDS: ceFAZolin 1 GM ADVAN 1 GM in NS 0.9% 50 ML 50 ML IVPB SCH ×2 (04:33→12:03)
[2023-03-22] MEDS: Magnesium Hydroxide LIQ 30 ML UDC PO SCH ×2 (08:03→21:39)
[2023-03-22] MEDS: Vitamin THERAPEUTIC TAB PO SCH (08:06)
[2023-03-22] MEDS ORDERED: Nicotine GUM 4MG FRUIT FLAVOR PO PRN (08:24)
[2023-03-22] MEDS: Enoxaparin 40 MG/0.4 ML SYR SUBCUT SCH (12:06)
[2023-03-22] MEDS: Cholecalciferol (VIT D3) 1,000 unit TAB PO SCH (14:53)
[2023-03-23 07:55] LABS: Calcium 8.4 mg/dL (8.6-10.3); Creatinine, Serum 0.68 mg/dL (0.51-0.95); Magnesium 1.8 mg/dL (1.9-2.7); Potassium 3.9 mmol/L (3.5-5.0); eGFR CKD-EPI 97.8 (>60)
[2023-03-23 07:57] LABS: ABS Basophils 0.1 10^3/uL (0.0-0.1); ABS Eosinophils 0.2 10^3/uL (0.0-0.5); ABS Lymphocytes 1.2 10^3/uL (1.0-4.8); ABS Monocytes 0.8 10^3/uL (0.0-0.9); ABS Neutrophils 5.8 10^3/uL (1.5-7.6); ABS Nucleated RBC 0.01 10^3/ul; Eosinophil % 2.3 %; Hematocrit 33.1 % (35-45); Lymphocyte % 14.8 %; Mean Corpuscular Hemoglobin 28.6 pg (27-33); Mean Corpuscular Hgb Conc 33.2 g/dL (31-36); Mean Platelet Volume 8.3 fL (7.5-11.2); Nucleated Red Blood Cells % 0.1 %/100WBC (0.0-0.8); Platelet Count 355 10^3/uL (150-450); Red Blood Count 3.85 10^6/uL (3.63-4.92); Red Cell Distribution Width 16.3 % (12-17); White Blood Count 8.1 10^3/uL (3.8-11.8)
[2023-03-23] MEDS ORDERED: Potassium Chlor 20 meq TAB.ER PO ONE (08:20)
[2023-03-23] MEDS: Cholecalciferol (VIT D3) 1,000 unit TAB PO SCH (08:30)
[2023-03-23] MEDS: Vitamin THERAPEUTIC TAB PO SCH (08:30)
[2023-03-23] MEDS: Magnesium Hydroxide LIQ 30 ML UDC PO SCH ×2 (08:32→22:54)
[2023-03-23] MEDS ORDERED: Magnesium Sulf 4 GM/100 ML IV 4,000 MG/100 ML BAG IVPB ONE (10:30)
[2023-03-23] MEDS: Enoxaparin 40 MG/0.4 ML SYR SUBCUT SCH (12:14)
[2023-03-24] MEDS: Cholecalciferol (VIT D3) 1,000 unit TAB PO SCH (09:30)
[2023-03-24] MEDS: Vitamin THERAPEUTIC TAB PO SCH (09:30)
[2023-03-24] MEDS: Enoxaparin 40 MG/0.4 ML SYR SUBCUT SCH (12:40)
[2023-03-25] MEDS: Cholecalciferol (VIT D3) 1,000 unit TAB PO SCH (09:20)
[2023-03-25] MEDS: Vitamin THERAPEUTIC TAB PO SCH (09:20)
[2023-03-25] MEDS: Enoxaparin 40 MG/0.4 ML SYR SUBCUT SCH (13:13)
[2023-03-26] MEDS: Vitamin THERAPEUTIC TAB PO SCH (08:34)
[2023-03-26] MEDS: Cholecalciferol (VIT D3) 1,000 unit TAB PO SCH (08:34)
[2023-03-26] MEDS: Enoxaparin 40 MG/0.4 ML SYR SUBCUT SCH (14:28)
[2023-03-27] MEDS: Vitamin THERAPEUTIC TAB PO SCH (08:27)
[2023-03-27] MEDS: Cholecalciferol (VIT D3) 1,000 unit TAB PO SCH (08:27)
[2023-03-27 10:06] VITALS: BP 122/55
[2023-03-27] MEDS: Enoxaparin 40 MG/0.4 ML SYR SUBCUT SCH (13:25)
== END 2023-03-27 14:05 | DRG 320 ==
LOC: ED 20:26 → EDHOLD 03-19 02:04 → SUATTDRO 03-19 02:04 → MEDTELE 03-19 04:41 → SSU 03-19 04:42 → MEDTELE 03-19 06:12 → SSU 03-19 17:23 → MED 03-25 04:23
PROVIDERS: ADMIT Internal Medicine; ATTEND Hospitalist